=== PATIENT | male | born 1980 | race African-American/Black ===

== ENCOUNTER 2020-12-27 15:51 | Emergency (ER) | payer OTHER, SELFPAY ==
--- OUTSIDE RECORDS SUMMARY | 2020-12-27 15:53 | XMS REPORT | Continuity of Care Document ---
:1980 Author Organization [facility] t Address [address] [place] [address] Care Team Providers Name Role Phone Unavailable Unavailable Unavailable Problems This patient has no known problems. Allergies, Adverse Reactions, Alerts This patient has no known allergies or adverse reactions. Medications This patient has no known medications. Procedures This patient has no known procedures. Encounters Start End Encounter Admission Attending Care Care Encounter Source Date/Time Date/Time Type Type Clinicians Facility Department ID 2019-11-24 2019-11-24 Outpatient [facility] [id number] [facility] 00:00:00 00:00:00 [facility] Results This patient has no known results.
[2020-12-27 17:54] LABS: Absolute Lymphocytes (CBC) 2.5 K/uL (0.7-4.9); Hematocrit 40.5 % (39.6-49.0); Lymphocytes % 29.5 % (15.3-44.8); MPV 8.5 fL (7.6-11.3); RBC Red Blood Cell Count 4.27 M/uL (4.33-5.43)
[2020-12-27 18:10] LABS: ALT/SGPT 47 U/L (12-78); Albumin 3.4 g/dL (3.4-5.0); Alkaline Phosphatase 109 U/L (45-117); BUN Blood Urea Nitrogen 17 mg/dL (7-18); Bicarbonate 28 mmol/L (21-32); Bilirubin Direct < 0.1 mg/dL (0-0.2); Bilirubin Total 0.4 mg/dL (0.2-1.0); Glucose Level 104 mg/dL (74-106); Lipase 819 U/L (73-393); Protein, Total 7.6 g/dL (6.4-8.2); Sodium Level 143 mmol/L (136-145)
[2020-12-27 18:15] LABS: AST/SGOT 28 U/L (15-37); Potassium 3.7 mmol/L (3.5-5.1)
--- NOTE | 2020-12-27 19:41 | ER ---
Nurse's Notes [facility] Name: Grzegorz Ashraf Age: 40 yrs Sex: Male : 1980 Arrival Date: 12/27/2020 Time: 15:54 Bed Waiting Private MD: Diagnosis: Presentation: 12/27 16:44 Chief complaint: Patient states: generalized abd pain that began 2-3 days ago. Pt aa5 denies nausea/vomiting/diarrhea. Coronavirus screen: At this time, the client does not indicate any symptoms associated with coronavirus-19. Ebola Screen: No symptoms or risks identified at this time. Initial Sepsis Screen: Does the patient meet any 2 criteria? No. Patient's initial sepsis screen is negative. Does the patient have a suspected source of infection? No. Patient's initial sepsis screen is negative. Risk Assessment: Do you want to hurt yourself or someone else? Patient reports no desire to harm self or others. Onset of symptoms was December 2020. 16:44 Acuity: SAI 3 aa5 16:44 Method Of Arrival: Ambulatory aa5 Historical: - Allergies: 16:45 No Known Allergies; aa5 - PMHx: 16:45 Hypertensive disorder; aa5 - PSHx: 16:45 None; aa5 - Immunization history:: Client reports having NOT received the Covid vaccine. - Social history:: Smoking status: Patient reports the use of cigarette tobacco products, smokes one-half pack cigarettes per day. Vital Signs: 16:44 BP 159 / 109; Pulse 108; Resp 20 S; Temp 98.3(O); Pulse Ox 96% on R/A; Weight 120.2 kg aa5 (R); Height 5 ft. 8 in. (172.72 cm) (R); 16:44 Body Mass Index 40.29 (120.20 kg, 172.72 cm) aa5 ED Course: 15:54 Patient arrived in ED. as 16:44 Arm band placed on. aa5 16:45 Triage completed. aa5 16:47 [facility]-C [facility] kb 16:47 Manish Duarte MD is Attending Physician. kb 16:52 Initial lab(s) drawn, by me, sent to lab. Inserted saline lock: 20 gauge in left aa5 antecubital area, using aseptic technique. Blood collected. 18:07 Loly Ortiz, RN is Primary Nurse. ld1 Administered Medications: No medications were administered Outcome: 19:41 Patient left the ED. ld1 Signatures: Angi Bass FNP-C FNP-Delicia Evans Audri, RN RN aa5 Loly Ortiz, RN RN ld1
[2020-12-27 19:45] VITALS: BP 159/109; TEMP 98.3; O2SAT 96
== END 2020-12-27 19:41 | disposition left against medical advice (07) ==
LOC: ER 15:51
DX: Z53.21 Procedure and treatment not carried out due to patient leaving prior to being seen by health care provider (principal)
CPT/HCPCS: 36415; 80048; 80076; 83690; 85025; 99283

== ENCOUNTER 2021-12-12 13:44 | Emergency (ER) | payer OTHER, SELFPAY ==
--- OUTSIDE RECORDS SUMMARY | 2021-12-12 13:46 | XMS REPORT | Continuity of Care Document ---
:1980 Author Organization [facility] t Address [address] [place] [address] Care Team Providers Name Role Phone Neda Mazariegos Attending Clinician Unavailable Problems Condition Condition Condition Status Onset Resolution Last Treating Co mments Source Name Details Category Date Date Treatment Clinician Date Morbid Morbid Problem Active Common obesity (severe) Spirit obesity - CHI due to [facility] Benign Benign Problem Active Common essential essential Spir it hypertensi hypertensi - CHI on on [facility] Chronic Chronic Problem Active Common low back low back Spirit pain pain - CHI [facility] Family Family Problem Active Common history of history of Sp duncan diabetes diabetes - CHI mellitus mellitus [facility] Tobacco Nicotine Problem Active Common user dependence Spirit , - CHI uncomplica [facility] unspecifie Medica l d nicotine Center product type Body mass Adult BMI Problem Active Com mon index 40+ 40.0-44.9 Spir it - severely kg/sq m - CHI obese [facility] Allergies, Adverse Reactions, Alerts This patient has no known allergies or adverse reactions. Social History Social Habit Start Date Stop Date Quantity Comments Source History of Tobacco Current Smoker Co mmon Spirit - CHI Use [facility] Sex Assigned At Com mon Spirit - CHI [facility] Smoking Status Start Date Stop Date Source Current Smoker 2019-11-24 00:00:00 Common Spiri t - CHI [facility] Medications Ordered Filled Start Stop Current Ordering Indication Dosage Frequency Signature Comments Components Source Medication Medication Date Date Medication? Clinician (SIG) Name Name Losartan Losartan 2019-02 No 1{table QD Losartan Potassium Potassium 0-19 t} Potassium 25 MG 25 MG 00:00: 25 MG 00 Vital Signs Vital Name Observation Time Observation Value Comments Source height 2019-11-24 13:20:00 68 [in_i] [facility] weight 2019-11-24 13:20:00 281.0 [lb_av] [facility] temperature 2019-11-24 13:20:00 97.5 [degF] [facility] bmi 2019-11-24 13:20:00 42.72 kg/m2 [facility] oximetry 2019-11-24 13:20:00 92 % [facility] respiratory rate 2019-11-24 13:20:00 17 /min Comm on [facility] blood pressure 2019-11-24 13:20:00 143 mm[Hg] [facility] systolic [facility] blood pressure 2019-11-24 13:20:00 99 mm[Hg] [facility] diastolic [facility] Procedures This patient has no known procedures. Encounters Start End Encounter Admission Attending Care Care Encounter Source Date/Time Date/Time Type Type Clinicians Facility Department ID 2021-03-02 Outpatient Yair, STLMLC STLMLC [id number] Common 12:00:50 Neda [id number] [facility] 2021-03-02 Outpatient STLMLC STLMLC [id number] Common 11:56:30 [id number] [facility] 2019-11-24 2019-11-24 OFFICE STLMLC STLMLC [id number] Co mmon 00:00:00 00:00:00 VISIT NEW [facility] it PT LEVEL 3 [facility] Results This patient has no known results.
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
[2021-12-12] MEDS ORDERED: CYCLOBENZAPRINE 10 MG TAB ONE (15:39)
[2021-12-12] MEDS ORDERED: HYDROCODONE/APAP 5/325 MG TAB ONE (15:39)
[2021-12-12 16:51] VITALS: BP 142/81; O2SAT 96
== END 2021-12-12 15:50 | disposition home or self-care (01) ==
LOC: ER 13:44
DX: S16.1XXA Strain of muscle, fascia and tendon at neck level, initial encounter (principal); V59.59XA Passenger in pick-up truck or van injured in collision with other motor vehicles in traffic accident, initial encounter; I10 Essential (primary) hypertension; F17.210 Nicotine dependence, cigarettes, uncomplicated
CPT/HCPCS: 72040; 72100; 99284

== ENCOUNTER 2022-03-14 01:46 | Emergency (ER) | payer SELFPAY ==
--- OUTSIDE RECORDS SUMMARY | 2022-03-14 01:49 | XMS REPORT | Continuity of Care Document ---
:1980 Author Organization [facility] t Address [address] [place] [address] Care Team Providers Name Role Phone Neda Mazariegos Attending Clinician Unavailable Problems Condition Condition Condition Status Onset Resolution Last Treating Co mments Source Name Details Category Date Date Treatment Clinician Date Morbid Morbid Problem Active Common obesity (severe) Spirit obesity - CHI due to [facility] Benign Benign Problem Active Common essential essential Spir it hypertensi hypertensi - CHI on on [facility] Chronic Chronic Problem Active Common low back low back Spirit pain pain - CHI [facility] Family Family Problem Active Common history of history of Sp duncan diabetes diabetes - CHI mellitus mellitus [facility] Tobacco Nicotine Problem Active Common user dependence Spirit , - CHI uncomplica [facility] unspecifie Medica l d nicotine Center product type Body mass Adult BMI Problem Active Com mon index 40+ 40.0-44.9 Spir it - severely kg/sq m - CHI obese [facility] Allergies, Adverse Reactions, Alerts This patient has no known allergies or adverse reactions. Social History Social Habit Start Date Stop Date Quantity Comments Source History of Tobacco Current Smoker Co mmon Spirit - CHI Use [facility] Sex Assigned At Com mon Spirit - CHI [facility] Smoking Status Start Date Stop Date Source Current Smoker 2019-11-24 00:00:00 Common Spiri t - CHI [facility] Medications Ordered Filled Start Stop Current Ordering Indication Dosage Frequency Signature Comments Components Source Medication Medication Date Date Medication? Clinician (SIG) Name Name Losartan Losartan 2020-1 No 1{table QD Losartan Potassium Potassium 0-19 t} Potassium 25 MG 25 MG 00:00: 25 MG 00 Vital Signs Vital Name Observation Time Observation Value Comments Source height 2019-11-24 13:20:00 68 [in_i] [facility] weight 2019-11-24 13:20:00 281.0 [lb_av] [facility] temperature 2019-11-24 13:20:00 97.5 [degF] [facility] bmi 2019-11-24 13:20:00 42.72 kg/m2 [facility] oximetry 2019-11-24 13:20:00 92 % [facility] respiratory rate 2019-11-24 13:20:00 17 /min Comm on [facility] blood pressure 2019-11-24 13:20:00 143 mm[Hg] [facility] systolic [facility] blood pressure 2019-11-24 13:20:00 99 mm[Hg] [facility] diastolic [facility] Procedures This patient has no known procedures. Encounters Start End Encounter Admission Attending Care Care Encounter Source Date/Time Date/Time Type Type Clinicians Facility Department ID 2021-03-02 Outpatient Yair, STLMLC STLC [id number] Common 12:00:50 Neda [id number] [facility] 2021-03-02 Outpatient STLMLC STLMLC [id number] Common 11:56:30 [id number] [facility] 2019-11-24 2019-11-24 OFFICE STLMLC STLMLC [id number] Co mmon 00:00:00 00:00:00 VISIT NEW Spir it PT LEVEL 3 [facility] Results This patient has no known results.
[2022-03-14] MEDS ORDERED: DOXYCYCLINE 100 MG CAP PO ONE (02:19)
[2022-03-14] MEDS ORDERED: SMZ./TMP. 800/160 MG TABLET ONE (02:19)
--- NOTE | 2022-03-14 02:19 | ER ---
Nurse's Notes [facility] Name: Grzegorz Ashraf Jr Age: 41 yrs Sex: Male : 1980 Arrival Date: 03/14/2022 Time: 01:50 Bed 17 Private MD: Diagnosis: Cutaneous abscess of left axilla;Obesity, unspecified;Essential (primary) hypertension Presentation: 03/14 02:09 Chief complaint: Patient states: he has been having a "funny feeling in my heart' for bb several days with tingling in his left arm also has a small lump under his left arm. Coronavirus screen: At this time, the client does not indicate any symptoms associated with coronavirus-19. Ebola Screen: No symptoms or risks identified at this time. Initial Sepsis Screen: Does the patient meet any 2 criteria? No. Patient's initial sepsis screen is negative. Does the patient have a suspected source of infection? No. Patient's initial sepsis screen is negative. Risk Assessment: Do you want to hurt yourself or someone else? Patient reports no desire to harm self or others. Onset of symptoms was March 11, 2022. 02:09 Method Of Arrival: Ambulatory bb 02:09 Acuity: SAI 3 bb Historical: - Allergies: 02:13 No Known Allergies; bb - Home Meds: 02:13 None [Active]; bb - PMHx: 02:13 Hypertensive disorder; bb - PSHx: 02:13 None; bb - Immunization history:: Client reports having NOT received the Covid vaccine. - Social history:: Smoking status: Patient reports the use of cigarette tobacco products, Patient uses street drugs, marijuana, Patient/guardian denies using alcohol. - Family history:: not pertinent. Screenin:47 [facility] ED Fall Risk Assessment (Adult) History of falling in the last 3 months, pf1 including since admission No falls in past 3 months (0 pts). [facility] ED Fall Risk Assessment (Adult) History of falling in the last 3 months, including since admission No falls in past 3 months (0 pts) Confusion or Disorientation No (0 pts) Intoxicated or Sedated No (0 pts) Impaired Gait No (0 pts) Mobility Assist Device Used No (0 pt) Altered Elimination No (0 pt) Score/Fall Risk Level 0 - 2 = Low Risk Oriented to surroundings, Maintained a safe environment, Educated pt \\T\\ family on fall prevention, incl call for assistance when getting out of bed, Assessed \\T\\ reinforced patient's understanding of fall precautions, Provided non-skid footwear, Hourly rounding (assess needs \\T\\ fall precautionary measures) done, Used ambulatory aids as needed (educated on \\T\\ assisted with), Used gait belt as appropriate. Abuse screen: Denies threats or abuse. Nutritional screening: No deficits noted. Tuberculosis screening: No symptoms or risk factors identified. Assessment: 02:10 General: Appears in no apparent distress. comfortable, well groomed, well developed, pf1 Behavior is calm, cooperative, appropriate for age, quiet. 02:10 Pain: Complains of pain in left axillary pain and left chest "feels funny." Pain pf1 radiates to tingling sensation down left arm Pain began patient stated bump to left axillary started tonight at 2200 and a few days for chest discomfort and tingling sensation down left arm. Neuro: No deficits noted. Level of Consciousness is awake, alert, obeys commands, Oriented to person, place, time, situation. Cardiovascular: Reports chest pain, Capillary refill < 3 seconds Patient's skin is warm and dry. Respiratory: No deficits noted. Airway is patent Trachea midline Respiratory effort is even, unlabored, Respiratory pattern is regular, symmetrical, Breath sounds are clear bilaterally. GI: No deficits noted. Abdomen is round non-distended, Bowel sounds present X 4 quads. Abd is soft and non tender X 4 quads. : No deficits noted. No signs and/or symptoms were reported regarding the genitourinary system. EENT: No deficits noted. No signs and/or symptoms were reported regarding the EENT system. Derm: Abscess located on left axillary. Musculoskeletal: No deficits noted. No signs and/or symptoms reported regarding the musculoskeletal system. Vital Signs: 02:09 BP 167 / 118; Pulse 110; Resp 16 S; Temp 98.7(O); Pulse Ox 100% on R/A; Weight 111.13 bb kg (R); Height 5 ft. 8 in. (172.72 cm) (R); Pain 3/10; 02:47 BP 157 / 107; Pulse 105; Resp 18; Temp 98.5; Pulse Ox 97% ; Pain 0/10; pf1 02:09 Body Mass Index 37.25 (111.13 kg, 172.72 cm) ED Course: 01:50 Patient arrived in ED. ja2 02:07 Ena bey, RN is Primary Nurse. pf1 02:08 King Lin MD is Attending Physician. christy 02:12 Triage completed. bb 02:13 Arm band placed on Patient placed in an exam room, on a stretcher. bb 02:15 Patient has correct armband on for positive identification. Placed in gown. Bed in low pf1 position. Call light in reach. Client placed on continuous cardiac and pulse oximetry monitoring. NIBP monitoring applied. 02:18 Ezio Charlton MD is Referral Physician. christy 02:48 No provider procedures requiring assistance completed. Patient did not have IV access pf1 during this emergency room visit. Patient maintains SpO2 saturation greater than 95% on room air. Administered Medications: 02:15 Drug: Doxycycline 100 mg Route: PO; pf1 02:42 Follow up: Response: No adverse reaction pf1 02:15 Drug: Bactrim (trimethoprim-sulfamethoxazole) (160 mg-800 mg (DS) 1 tablet Route: PO; pf1 02:42 Follow up: Response: No adverse reaction pf1 02:30 Drug: Norvasc (amlodipine) 10 mg Route: PO; pf1 02:42 Follow up: Response: No adverse reaction; Marked relief of symptoms pf1 02:30 Drug: Motrin (ibuprofen) 800 mg Route: PO; pf1 02:41 Follow up: Response: No adverse reaction; Marked relief of symptoms pf1 02:42 Follow up: Response: Pain is decreased; RASS: Alert and Calm (0) pf1 Medication: 02:49 VIS not applicable for this client. pf1 Outcome: 02:19 Discharge ordered by . christy 02:48 Discharged to home ambulatory. pf1 02:48 Condition: improved 02:48 Discharge instructions given to patient, Instructed on discharge instructions, follow up and referral plans. medication usage, Demonstrated understanding of instructions, follow-up care, medications, Prescriptions given X 02:49 Prescriptions given X 4. pf1 02:50 Patient left the ED. pf1 Signatures: King Lin MD MD cha Ballard, Brenda, RN RN Roxanna Wong [facility] Ena bey RN RN pf1
--- NOTE | 2022-03-14 02:19 | EDPHYS ---
Physician Documentation [facility] Name: Grzegorz Ashraf Jr Age: 41 yrs Sex: Male : 1980 Arrival Date: 03/14/2022 Time: 01:50 Bed 17 Private MD: ED Physician King Lin HPI: 03/14 02:12 This 41 yrs old Black Male presents to ER via Unassigned with complaints of Chest Pain, christy Lump in Under Arm. Historical: - Allergies: 02:13 No Known Allergies; bb - Home Meds: 02:13 None [Active]; bb - PMHx: 02:13 Hypertensive disorder; bb - PSHx: 02:13 None; bb - Immunization history:: Client reports having NOT received the Covid vaccine. - Social history:: Smoking status: Patient reports the use of cigarette tobacco products, Patient uses street drugs, marijuana, Patient/guardian denies using alcohol. - Family history:: not pertinent. ROS: 02:13 Constitutional: Negative for fever, chills, and weight loss, Eyes: Negative for injury, christy pain, redness, and discharge, ENT: Negative for injury, pain, and discharge, Neck: Negative for injury, pain, and swelling, Cardiovascular: Negative for chest pain, palpitations, and edema, Respiratory: Negative for shortness of breath, cough, wheezing, and pleuritic chest pain, Abdomen/GI: Negative for abdominal pain, nausea, vomiting, diarrhea, and constipation, Back: Negative for injury and pain, : Negative for injury, bleeding, discharge, and swelling, Skin: Negative for injury, rash, and discoloration, Neuro: Negative for headache, weakness, numbness, tingling, and seizure, Psych: Negative for depression, anxiety, suicide ideation, homicidal ideation, and hallucinations, Allergy/Immunology: Negative for hives, rash, and allergies, Endocrine: Negative for neck swelling, polydipsia, polyuria, polyphagia, and marked weight changes, Hematologic/Lymphatic: Negative for swollen nodes, abnormal bleeding, and unusual bruising. 02:13 MS/extremity: Positive for decreased range of motion, swelling, tenderness, warmth. Exam: 02:13 Constitutional: This is a well developed, well nourished patient who is awake, alert, christy and in no acute distress. Head/Face: Normocephalic, atraumatic. Eyes: Pupils equal round and reactive to light, extra-ocular motions intact. Lids and lashes normal. Conjunctiva and sclera are non-icteric and not injected. Cornea within normal limits. Periorbital areas with no swelling, redness, or edema. ENT: Nares patent. No nasal discharge, no septal abnormalities noted. Tympanic membranes are normal and external auditory canals are clear. Oropharynx with no redness, swelling, or masses, exudates, or evidence of obstruction, uvula midline. Mucous membranes moist. Neck: Trachea midline, no thyromegaly or masses palpated, and no cervical lymphadenopathy. Supple, full range of motion without nuchal rigidity, or vertebral point tenderness. No Meningismus. Chest/axilla: Normal chest wall appearance and motion. Nontender with no deformity. No lesions are appreciated. Cardiovascular: Regular rate and rhythm with a normal S1 and S2. No gallops, murmurs, or rubs. Normal PMI, no JVD. No pulse deficits. Respiratory: Lungs have equal breath sounds bilaterally, clear to auscultation and percussion. No rales, rhonchi or wheezes noted. No increased work of breathing, no retractions or nasal flaring. Abdomen/GI: Soft, non-tender, with normal bowel sounds. No distension or tympany. No guarding or rebound. No evidence of tenderness throughout. Back: No spinal tenderness. No costovertebral tenderness. Full range of motion. Male : Normal genitalia with no discharge or lesions. Skin: Warm, dry with normal turgor. Normal color with no rashes, no lesions, and no evidence of cellulitis. Neuro: Awake and alert, GCS 15, oriented to person, place, time, and situation. Cranial nerves II-XII grossly intact. Motor strength 5/5 in all extremities. Sensory grossly intact. Cerebellar exam normal. Normal gait. Psych: Awake, alert, with orientation to person, place and time. Behavior, mood, and affect are within normal limits. 02:13 Musculoskeletal/extremity: Extremities: all appear grossly normal, with no appreciated pain with palpation, ROM: intact in all extremities, Circulation is intact in all extremities. Sensation intact. Compartment Syndrome exam of affected extremity: is normal. DVT Exam: No signs of deep vein thrombosis. no pain, no swelling, no tenderness, negative Homans' sign noted on exam, no appreciated bluish discoloration, no erythema, no increased warmth. Vital Signs: 02:09 BP 167 / 118; Pulse 110; Resp 16 S; Temp 98.7(O); Pulse Ox 100% on R/A; Weight 111.13 bb kg (R); Height 5 ft. 8 in. (172.72 cm) (R); Pain 3/10; 02:47 BP 157 / 107; Pulse 105; Resp 18; Temp 98.5; Pulse Ox 97% ; Pain 0/10; pf1 02:09 Body Mass Index 37.25 (111.13 kg, 172.72 cm) bb MDM: 02:08 Patient medically screened. christy 02:13 Differential diagnosis: chest wall pain. HEART Score: History: Slightly Suspicious (0), christy Age: < or = 45 years (0), Risk Factors: 1 or 2 risk factors (1), [Hypertension]. Data reviewed: vital signs, nurses notes. Consideration of Admission/Observation Escalation of care including admission/observation considered. 02 02:46 Order name: Glucose, Ancillary Testing EDMS 02 02:22 Order name: Blood Glucose Level; Complete Time: 02:34 christy Administered Medications: 02:15 Drug: Doxycycline 100 mg Route: PO; pf1 02:42 Follow up: Response: No adverse reaction pf1 02:15 Drug: Bactrim (trimethoprim-sulfamethoxazole) (160 mg-800 mg (DS) 1 tablet Route: PO; pf1 02:42 Follow up: Response: No adverse reaction pf1 02:30 Drug: Norvasc (amlodipine) 10 mg Route: PO; pf1 02:42 Follow up: Response: No adverse reaction; Marked relief of symptoms pf1 02:30 Drug: Motrin (ibuprofen) 800 mg Route: PO; pf1 02:41 Follow up: Response: No adverse reaction; Marked relief of symptoms pf1 02:42 Follow up: Response: Pain is decreased; RASS: Alert and Calm (0) pf1 Disposition Summary: 03/14/22 02:19 Discharge Ordered Location: Home christy Problem: new christy Symptoms: have improved christy Condition: Stable christy Diagnosis - Cutaneous abscess of left axilla christy - Obesity, unspecified christy - Essential (primary) hypertension christy Followup: christy - With: Private Physician - When: 2 - 3 days - Reason: Recheck today's complaints, Continuance of care, Re-evaluation by your physician Followup: [facility] - With: Ezio Charlton MD - When: 1 - 2 days - Reason: Recheck today's complaints, Re-evaluation by your physician Discharge Instructions: - Discharge Summary Sheet christy - Skin Abscess christy - Hypertension, Adult christy - Hypertension, Adult, [id number] [facility] - How to Take Your Blood Pressure, [id number] [facility] - Managing Your Hypertension [facility] Forms: - Medication Reconciliation Form [facility] - Thank You Letter [facility] - Antibiotic Education [facility] - Prescription Opioid Use [facility] Prescriptions: - Ibuprofen 600 mg Oral Tablet - take 1 tablet by ORAL route every 6 hours As needed take with food; 20 tablet; [facility] Refills: 0, Product Selection Permitted - Norvasc 5 mg Oral Tablet - take 1 tablet by ORAL route once daily; 20 tablet; Refills: 0, Product [facility] Selection Permitted - Doxycycline Hyclate 100 mg Oral Tablet - take 1 tablet by ORAL route every 12 hours; 20 tablet; Refills: 0, Product [facility] Selection Permitted - Bactrim DS 800-160 mg Oral Tablet - take 1 tablet by ORAL route every 12 hours for 10 days; 20 tablet; Refills: 0, [facility] Product Selection Permitted Signatures: King Lin MD MD cha Ballard, Brenda, RN RN Ena rodriguez RN RN pf1
[2022-03-14] MEDS ORDERED: AMLODIPINE 10 MG TAB ONE (02:31)
[2022-03-14] MEDS ORDERED: IBUPROFEN 400 MG TAB ONE (02:31)
[2022-03-14 03:25] VITALS: BP 157/107; TEMP 98.5; O2SAT 97
== END 2022-03-14 02:50 | disposition home or self-care (01) ==
LOC: ER 01:46
DX: L02.412 Cutaneous abscess of left axilla (principal); I10 Essential (primary) hypertension; E66.9 Obesity, unspecified; Z68.37 Body mass index [BMI] 37.0-37.9, adult
CPT/HCPCS: 82947

== ENCOUNTER 2022-03-16 19:14 | Emergency (ER) | payer SELFPAY ==
--- OUTSIDE RECORDS SUMMARY | 2022-03-16 19:17 | XMS REPORT | Continuity of Care Document ---
:1980 Author Organization [facility] t Address [address] [place] [address] Care Team Providers Name Role Phone Neda Mazariegos Attending Clinician Unavailable Problems Condition Condition Condition Status Onset Resolution Last Treating Co mments Source Name Details Category Date Date Treatment Clinician Date Morbid Morbid Problem Active Common obesity (severe) Spirit obesity - [facility] due to [facility] Benign Benign Problem Active Common essential essential Spir it hypertensi hypertensi - [facility] on on [facility] Chronic Chronic Problem Active Common low back low back Spirit pain pain - [facility] Family Family Problem Active Common history of history of Sp duncan diabetes diabetes - [facility] mellitus mellitus [facility] Tobacco Nicotine Problem Active Common user dependence Spirit , - [facility] uncomplica [facility] unspecifie [facility] Center product type Body mass Adult BMI Problem Active Com mon index 40+ 40.0-44.9 Spir it - severely kg/sq m - [facility] obese [facility] Allergies, Adverse Reactions, Alerts This patient has no known allergies or adverse reactions. Social History Social Habit Start Date Stop Date Quantity Comments Source History of Tobacco Current Smoker Co mmon Spirit - [facility] Use [facility] Sex Assigned At Com mon Spirit - [facility] Smoking Status Start Date Stop Date Source Current Smoker 2019-11-24 00:00:00 Common Spiri t - [facility] Medications Ordered Filled Start Stop Current Ordering Indication Dosage Frequency Signature Comments Components Source Medication Medication Date Date Medication? Clinician (SIG) Name Name Losartan Losartan 2020-1 No 1{table QD Losartan Potassium Potassium 0-19 t} Potassium 25 MG 25 MG 00:00: 25 MG 00 Vital Signs Vital Name Observation Time Observation Value Comments Source height 2019-11-24 13:20:00 68 [in_i] [facility] weight 2019-11-24 13:20:00 281.0 [lb_av] [facility] temperature 2019-11-24 13:20:00 97.5 [degF] [facility] bmi 2019-11-24 13:20:00 42.72 kg/m2 [facility] oximetry 2019-11-24 13:20:00 92 % [facility] respiratory rate 2019-11-24 13:20:00 17 /min Comm on [facility] blood pressure 2019-11-24 13:20:00 143 mm[Hg] [facility] systolic [facility] blood pressure 2019-11-24 13:20:00 99 mm[Hg] [facility] diastolic [facility] Procedures This patient has no known procedures. Encounters Start End Encounter Admission Attending Care Care Encounter Source Date/Time Date/Time Type Type Clinicians Facility Department ID 2021-03-02 Outpatient Yair, STLMLC STLC [id number] Common 12:00:50 Neda [id number] [facility] 2021-03-02 Outpatient STLMLC STLMLC [id number] Common 11:56:30 [id number] [facility] 2019-11-24 2019-11-24 OFFICE STLMLC STLMLC [id number] Co mmon 00:00:00 00:00:00 VISIT NEW Spir it PT LEVEL 3 [facility] Results This patient has no known results.
--- NOTE | 2022-03-16 20:00 | RAD REPORT ---
EXAM DESCRIPTION: RAD - Chest Single View - 03/16/2022 7:53 pm CLINICAL HISTORY: CHEST PAIN Chest pain. COMPARISON: Chest Single View dated 11/29/2015 FINDINGS: Portable technique limits examination quality. The lungs are grossly clear. The heart is normal in size. No displaced fractures. IMPRESSION: No acute intrathoracic process suspected.
[2022-03-16 20:25] LABS: Absolute Lymphocytes (CBC) 2.8 K/uL (0.7-4.9); Hematocrit 41.9 % (39.6-49.0); Lymphocytes % 34.6 % (15.3-44.8); MCV 94.3 fL (80-100); MPV 8.8 fL (7.6-11.3); RBC Red Blood Cell Count 4.45 M/uL (4.33-5.43)
[2022-03-16 20:40] LABS: Troponin High Sensitivity 5.6 pg/mL (<58.9)
[2022-03-16 20:43] LABS: Potassium 3.8 mmol/L (3.5-5.1)
--- NOTE | 2022-03-16 20:54 | ER ---
Nurse's Notes [facility] [place] [place] Name: Grzegorz Ashraf Jr Age: 41 yrs Sex: Male : 1980 Arrival Date: 03/16/2022 Time: 19:17 Bed 7 Private MD: Diagnosis: Chest pain, unspecified Presentation: 03/16 19:24 Chief complaint: Patient states: "I've been having chest pain for the past week every mb9 couple minutes. It comes and goes and I feel like I'm sweating a lot". 19:24 Method Of Arrival: Ambulatory mb9 19:24 Coronavirus screen: Vaccine status: Patient reports being unvaccinated. Ebola Screen: mb9 No symptoms or risks identified at this time. Initial Sepsis Screen: Does the patient meet any 2 criteria? No. Patient's initial sepsis screen is negative. Does the patient have a suspected source of infection? No. Patient's initial sepsis screen is negative. Risk Assessment: Do you want to hurt yourself or someone else? Patient reports no desire to harm self or others. Onset of symptoms was March 09, 2022. 19:24 Acuity: SAI 3 mb9 Historical: - Allergies: 19:39 No Known Allergies; mb9 - PMHx: 19:39 Hypertensive disorder; mb9 - PSHx: 19:39 None; mb9 - Immunization history:: Adult Immunizations not up to date. - Social history:: Smoking status: Patient/guardian denies using tobacco, but has a distant history of tobacco abuse. - Family history:: not pertinent. - Hospitalizations: : No recent hospitalization is reported. Screenin:45 [facility] ED Fall Risk Assessment (Adult) History of falling in the last 3 months, jb4 including since admission No falls in past 3 months (0 pts) Confusion or Disorientation No (0 pts) Score/Fall Risk Level 0 - 2 = Low Risk Oriented to surroundings, Maintained a safe environment. Abuse screen: Denies threats or abuse. Nutritional screening: No deficits noted. Tuberculosis screening: No symptoms or risk factors identified. Assessment: 19:45 General: Appears in no apparent distress. comfortable, Behavior is calm, cooperative, jb4 appropriate for age. Pain: Complains of pain in chest Pain radiates to left arm Pain currently is 3 out of 10 on a pain scale. Quality of pain is described as stabbing, Pain began 2-3 days ago. Is intermittent. Neuro: Level of Consciousness is awake, alert, obeys commands, Oriented to person, place, time, situation. Cardiovascular: Patient's skin is warm and dry. Respiratory: Airway is patent Respiratory effort is even, unlabored, Respiratory pattern is regular, symmetrical. GI: No signs and/or symptoms were reported involving the gastrointestinal system. : No signs and/or symptoms were reported regarding the genitourinary system. EENT: No signs and/or symptoms were reported regarding the EENT system. Derm: Skin is intact, Skin is dry, Skin is normal. Musculoskeletal: Circulation, motion, and sensation intact. Range of motion: intact in all extremities. 20:24 Reassessment: Patient appears in no apparent distress at this time. Patient and/or jb4 family updated on plan of care and expected duration. Pain level reassessed. Patient is alert, oriented x 3, equal unlabored respirations, skin warm/dry/pink. 21:06 Reassessment: Patient appears in no apparent distress at this time. Patient and/or jb4 family updated on plan of care and expected duration. Pain level reassessed. Patient is alert, oriented x 3, equal unlabored respirations, skin warm/dry/pink. Vital Signs: 19:24 BP 148 / 108; Pulse 110; Resp 20; Temp 99.0; Pulse Ox 97% on R/A; Weight 111.13 kg; mb9 Height 5 ft. 8 in. (172.72 cm); 20:26 BP 136 / 92; Pulse 100; Resp 15; Pulse Ox 97% ; jb4 19:24 Body Mass Index 37.25 (111.13 kg, 172.72 cm) mb9 ED Course: 19:17 Patient arrived in ED. am2 19:24 Arm band placed on. mb9 19:26 Kirk Hampton MD is Attending Physician. rn 19:39 Triage completed. mb9 19:39 Placed in gown. Bed in low position. Call light in reach. Side rails up X 1. Client mb9 placed on continuous cardiac and pulse oximetry monitoring. NIBP monitoring applied. monitoring engineer on. 19:39 EKG done, by ED staff, reviewed by Kirk Hampton MD. mb9 19:55 XRAY Chest (1 view) In Process Unspecified. EDMS 19:59 Inserted saline lock: 22 gauge in right antecubital area, using aseptic technique. mw1 Blood collected. 20:07 Faustino Fuller, RN is Primary Nurse. jb4 21:06 No provider procedures requiring assistance completed. IV discontinued, intact, jb4 bleeding controlled, No redness/swelling at site. Pressure dressing applied. Patient maintains SpO2 saturation greater than 95% on room air. Administered Medications: No medications were administered Medication: 21: VIS not applicable for this client. jb4 Outcome: :53 Discharge ordered by . rn 21: Discharged to home ambulatory. jb4 21:06 Condition: stable 21:06 Discharge instructions given to patient, Instructed on discharge instructions, follow up and referral plans. Demonstrated understanding of instructions, follow-up care. 21:07 Patient left the ED. jb4 Signatures: Dispatcher [employer] EDMS Kirk Hampton MD MD rn Bryson, James, RN RN jb4 Juliet Morrison am2 Can Arana mw1 Eleni Ambrocio RN RN mb9
--- NOTE | 2022-03-16 20:54 | EDPHYS ---
Physician Documentation [facility] Name: Grzegorz Ashraf Jr Age: 41 yrs Sex: Male : 1980 Arrival Date: 03/16/2022 Time: 19:17 Bed 7 Private MD: ED Physician Kirk Hampton HPI: 03/16 20:04 This 41 yrs old Black Male presents to ER via Ambulatory with complaints of Chest Pain. rn 20:04 The patient or guardian reports chest pain that is located primarily in the anterior rn aspect of left upper chest. The pain radiates to the left shoulder. Associated signs and symptoms: Pertinent negatives: abdominal pain, cough, diaphoresis, palpitations, shortness of breath, syncope, vomiting. The chest pain is described as aching, sharp. Duration: The patient or guardian reports multiple episodes, that are intermittent, the episodes last approximately 1 minute(s). Modifying factors: The symptoms are alleviated by nothing. the symptoms are aggravated by deep breath. Severity of pain: At its worst the pain was mild in the emergency department the pain has improved. The patient has experienced a previous episode. The patient has been recently seen at the [facility] Emergency Department. Pt reports intermittent left sided chest pain over the last week, seen here for it earlier in week, no trauma, no hx of DVT/PE, + smoker, radiates to left shoulder/arm, lasts for about 1-2 minutes, improves after calming down and slow breathing exercises. NO famhx of early cardiac problems. . Historical: - Allergies: 19:39 No Known Allergies; mb9 - PMHx: 19:39 Hypertensive disorder; mb9 - PSHx: 19:39 None; mb9 - Immunization history:: Adult Immunizations not up to date. - Social history:: Smoking status: Patient/guardian denies using tobacco, but has a distant history of tobacco abuse. - Family history:: not pertinent. - Hospitalizations: : No recent hospitalization is reported. ROS: 20:04 Constitutional: Negative for fever, chills, and weight loss, Eyes: Negative for injury, rn pain, redness, and discharge, Neck: Negative for injury, pain, and swelling, Cardiovascular: Negative for palpitations, and edema, Respiratory: Negative for shortness of breath, cough, wheezing Abdomen/GI: Negative for abdominal pain, nausea, vomiting, diarrhea, and constipation, MS/Extremity: Negative for injury and deformity, Skin: Negative for injury, rash, and discoloration, Neuro: Negative for headache, weakness, numbness, tingling, and seizure. Exam: 19:42 ECG was reviewed by the Attending Physician. rn 20:04 Constitutional: This is a well developed, well nourished patient who is awake, alert, rn and in no acute distress. Seems anxious. Head/Face: Normocephalic, atraumatic. Cardiovascular: Tachycardic, regular. Respiratory: No increased work of breathing, no retractions or nasal flaring. Abdomen/GI: soft, non-tender Skin: Warm, dry MS/ Extremity: Pulses equal, no cyanosis. Neuro: Awake and alert, GCS 15 Vital Signs: 19:24 BP 148 / 108; Pulse 110; Resp 20; Temp 99.0; Pulse Ox 97% on R/A; Weight 111.13 kg; mb9 Height 5 ft. 8 in. (172.72 cm); 20:26 BP 136 / 92; Pulse 100; Resp 15; Pulse Ox 97% ; jb4 19:24 Body Mass Index 37.25 (111.13 kg, 172.72 cm) mb9 MDM: 19:26 Patient medically screened. rn 20:04 Differential diagnosis: acute myocardial infarction, acute pericarditis, anxiety, rn coronary artery disease chest wall pain, congestive heart failure costochondritis, esophagitis, pleurisy, pneumothorax, pulmonary embolus, stable angina. 20:52 HEART Score: History: Slightly Suspicious (0), ECG: Non specific repolarization rn disturbance / LBTB / PM (1), Age: < or = 45 years (0), Risk Factors: 1 or 2 risk factors (1), Troponin: < or = 1 x Normal Limit (0), Total Score = 2. Data reviewed: vital signs, nurses notes, lab test result(s), EKG, radiologic studies, plain films, and as a result, I will discharge patient. Independent interpretation of the following test(s) in the Emergency Department EKG: See my EKG interpretation above X-Ray: My interpretation is CXR neg for pneumothorax or pneumonia. Counseling: I had a detailed discussion with the patient and/or guardian regarding: the historical points, exam findings, and any diagnostic results supporting the discharge/admit diagnosis, lab results, radiology results, the need for outpatient follow up, to return to the emergency department if symptoms worsen or persist or if there are any questions or concerns that arise at home. Special discussion: Based on the patient's history, exam, and Dx evaluation, there is no indication for emergent intervention or inpatient Tx. It is understood by the patient/guardian that if the Sx's persist or worsen they need to return immediately for re-evaluation. I discussed with the patient/guardian in detail that at this point there is no indication for admission to the hospital. It is understood, however, that if the symptoms persist or worsen the patient needs to return immediately for re-evaluation. Based on the history and exam findings, there is no indication for further emergent testing or inpatient evaluation. I discussed with the patient/guardian the need to see the primary care provider for further evaluation of the symptoms. ED course: 2 ER visits in same week, with neg workups, neg trop, neg d-dimer, recommend smoking cessation and will discharge with return precautions. . 03/16 19:33 Order name: Basic Metabolic Panel; Complete Time: 20:03/16 19:33 Order name: CBC with Diff; Complete Time: 20: rn 03/16 19:33 Order name: D-Dimer; Complete Time: 20: rn 03/16 19:33 Order name: NT PRO-BNP; Complete Time: 20:50 rn 03/16 19:33 Order name: Troponin HS; Complete Time: 20:50 rn 03/16 19:33 Order name: XRAY Chest (1 view); Complete Time: 20: rn 03/16 19:33 Order name: EKG; Complete Time: 19: rn 03/16 19:33 Order name: Cardiac monitoring; Complete Time: 20: rn 03/16 19:33 Order name: EKG - Nurse/Tech; Complete Time: 20: rn 03/16 19:33 Order name: IV Saline Lock; Complete Time: :03/16 19:33 Order name: Labs collected and sent; Complete Time: 20:03/16 19:33 Order name: O2 Per Protocol; Complete Time: 20:03/16 19:33 Order name: O2 Sat Monitoring; Complete Time: 20: rn EC:42 Rate is 109 beats/min. Rhythm is regular. QRS is positive in lead aVF and negative in rn lead I. HI interval is normal. QRS interval is normal. QT interval is normal. No Q waves. T waves are Normal. No ST changes noted. Clinical impression: Sinus tachycardia. Interpreted by me. Reviewed by me. Administered Medications: No medications were administered Disposition Summary: 03/16/22 20:53 Discharge Ordered Location: Home rn Problem: an ongoing problem rn Symptoms: have improved rn Condition: Stable rn Diagnosis - Chest pain, unspecified rn Followup: rn - With: Private Physician - When: As needed - Reason: Recheck today's complaints, Re-evaluation by your physician Discharge Instructions: - Discharge Summary Sheet rn - Nonspecific Chest Pain, Adult rn - Hypertension, Adult rn - Steps to Quit Smoking rn Forms: - Medication Reconciliation Form rn - Thank You Letter rn - Antibiotic mergers and acquisitions attorney - Prescription Opioid Use rn Signatures: Dispatcher [employer] Kirk Medina MD MD rn Breneman, Mary Beth, RN RN mb9
[2022-03-16 21:38] VITALS: TEMP 98.8
[2022-03-16 21:39] VITALS: BP 111/57; O2SAT 98
== END 2022-03-16 21:07 | disposition home or self-care (01) ==
LOC: ER 19:14
DX: R07.89 Other chest pain (principal); I10 Essential (primary) hypertension
CPT/HCPCS: 36415; 71045; 80048; 83880; 84484; 85025; 85379; 93005; 99285

== ENCOUNTER 2022-06-22 14:04 | Emergency (ER) | payer OTHER ==
--- OUTSIDE RECORDS SUMMARY | 2022-06-22 14:09 | XMS REPORT | Continuity of Care Document ---
:1980 Author Organization [facility] t Address [address] [place] [address] Care Team Providers Name Role Phone Neda Mazariegos Attending Clinician Unavailable Problems Condition Condition Condition Status Onset Resolution Last Treating Co mments Source Name Details Category Date Date Treatment Clinician Date Morbid Morbid Problem Active Common obesity (severe) Spirit obesity - [facility] due to [facility] Benign Benign Problem Active Common essential essential Spir it hypertensi hypertensi - [facility] on on [facility] Chronic Chronic Problem Active Common low back low back Spirit pain pain - [facility] Family Family Problem Active Common history of history of Sp duncan diabetes diabetes - [facility] mellitus mellitus [facility] Tobacco Nicotine Problem Active Common user dependence Spirit , - [facility] uncomplica [facility] unspecifie Med[facility] nicotine Center product type Body mass Adult BMI Problem Active Com mon index 40+ 40.0-44.9 Spir it - severely kg/sq m - [facility] obese [facility] Allergies, Adverse Reactions, Alerts This patient has no known allergies or adverse reactions. Social History Social Habit Start Date Stop Date Quantity Comments Source History of Tobacco Current Smoker Co mmon Spirit - [facility] Use [facility] Sex Assigned At Com mon Spirit - [facility] Smoking Status Start Date Stop Date Source Current Smoker 2019-11-24 00:00:00 Common Spiri t - [facility] Medications Ordered Filled Start Stop Current Ordering Indication Dosage Frequency Signature Comments Components Source Medication Medication Date Date Medication? Clinician (SIG) Name Name Losartan Losartan 2019-02 No 1{table QD Losartan Potassium Potassium 0-19 t} Potassium 25 MG 25 MG 00:00: 25 MG 00 Vital Signs Vital Name Observation Time Observation Value Comments Source height 2019-11-24 13:20:00 68 [in_i] [facility] weight 2019-11-24 13:20:00 281.0 [lb_av] [facility] temperature 2019-11-24 13:20:00 97.5 [degF] [facility] bmi 2019-11-24 13:20:00 42.72 kg/m2 [facility] oximetry 2019-11-24 13:20:00 92 % [facility] respiratory rate 2019-11-24 13:20:00 17 /min Comm on [facility] blood pressure 2019-11-24 13:20:00 143 mm[Hg] [facility] - systolic [facility] blood pressure 2019-11-24 13:20:00 99 mm[Hg] [facility] diastolic [facility] Procedures This patient has no known procedures. Encounters Start End Encounter Admission Attending Care Care Encounter Source Date/Time Date/Time Type Type Clinicians Facility Department ID 2021-03-02 Outpatient Yair, STLMLC STLMLC [id number] Common 12:00:50 Neda [id number] [facility] 2021-03-02 Outpatient STLMLC STLMLC [id number] Common 11:56:30 [id number] [facility] 2022-05-26 2022-05-26 Outpatient SFA SFA [id number] Raymond 16:50:47 16:50:47 [id number] F Conrad 2022-04-04 2022-04-04 Outpatient SFA SFA [id number] Raymond 11:07:16 11:07:16 [id number] F Conrad 2022-03-20 2022-03-20 Outpatient SFA SFA [id number] Raymond 14:58:22 14:58:22 [id number] F Magalia 2019-11-24 2019-11-24 OFFICE STLMLC STLMLC [id number] Co mmon 00:00:00 00:00:00 VISIT ALEX [facility] it PT LEVEL 3 - [facility] Results This patient has no known results.
--- NOTE | 2022-06-22 15:11 | RAD REPORT ---
EXAM DESCRIPTION: RADChest Single View06/22/2022 2:56 pm CLINICAL HISTORY: CHEST PAIN COMPARISON: Chest Single View dated 05/04/2022; Chest Single View dated 03/16/2022; Chest Single View d ated 11/29/2015 TECHNIQUE: Portable AP view of the chest. FINDINGS: The lungs are clear. No pneumothorax or effusion. The cardiomediastinal contours are unrem arkable. IMPRESSION: No acute cardiopulmonary process.
[2022-06-22 15:22] LABS: Absolute Lymphocytes (CBC) 2.1 K/uL (0.7-4.9); Lymphocytes % 26.9 % (15.3-44.8); MCV 95.6 fL (80-100); MPV 8.7 fL (7.6-11.3); RBC Red Blood Cell Count 4.19 M/uL (4.33-5.43)
[2022-06-22 16:00] LABS: ALT/SGPT 39 U/L (16-61); Albumin 3.2 g/dL (3.4-5.0); Alkaline Phosphatase 97 U/L (45-117); BUN Blood Urea Nitrogen 17 mg/dL (7-18); Bicarbonate 26 mEq/L (21-32); Bilirubin Total 0.3 mg/dL (0.2-1.0); Glomerular Filtration Rate 106 ml/min (=/>90); Glucose Level 110 mg/dL (74-106); NT PRO-BNP 10 pg/mL (<125); Protein, Total 6.9 g/dL (6.4-8.2); Sodium Level 139 mEq/L (136-145); Troponin High Sensitivity 4.8 pg/mL (<58.9)
[2022-06-22 16:02] LABS: AST/SGOT 24 U/L (15-37); Bilirubin Direct < 0.1 mg/dL (0-0.2); Bilirubin Indirect, Calculated ND mg/dL (0.2-0.8); Magnesium 1.6 mg/dL (1.6-2.4); Potassium 3.9 mEq/L (3.5-5.1)
--- NOTE | 2022-06-22 18:10 | ER ---
Nurse's Notes [facility] Name: Grzegorz Ashraf Jr Age: 41 yrs Sex: Male : 1980 Arrival Date: 06/22/2022 Time: 14:04 Bed 20 Private MD: Diagnosis: Chest pain, unspecified Presentation: 06/22 14:24 Chief complaint: Patient states: CP that woke pt up this morning. Stated "chest vg1 pressure" that radiates to Left Arm, denies h/a or SOB. Coronavirus screen: Vaccine status: Patient reports being unvaccinated. Client denies travel out of the [place] in the last 14 days. Ebola Screen: Patient negative for fever greater than or equal to 101.5 degrees Fahrenheit, and additional compatible Ebola Virus Disease symptoms Patient denies exposure to infectious person. Patient denies travel to an Ebola-affected area in the 21 days before illness onset. Initial Sepsis Screen: Does the patient meet any 2 criteria? HR > 90 bpm. Does the patient have a suspected source of infection? No. Patient's initial sepsis screen is negative. Risk Assessment: Do you want to hurt yourself or someone else? Patient reports no desire to harm self or others. Onset of symptoms. 14:24 Method Of Arrival: Ambulatory vg1 14:24 Acuity: SAI 2 vg1 Triage Assessment: 14:28 General: Appears uncomfortable, Behavior is cooperative. Pain: Complains of pain in vg1 chest Pain radiates to left arm Pain currently is 5 out of 10 on a pain scale. Pain began this morning around 1100. Cardiovascular: Patient's skin is warm and dry. Historical: - Allergies: 14:28 No Known Allergies; vg1 - Home Meds: 14:28 losartan oral [Active]; vg1 18:19 amlodipine 5 mg tablet daily [Active]; eh3 - PMHx: 14:28 Hypertensive disorder; vg1 - PSHx: 14:28 None; vg1 - Immunization history:: Client reports having NOT received the Covid vaccine. - Social history:: Smoking status: Patient reports the use of cigarette tobacco products, cigars. Screenin:00 [facility] ED Fall Risk Assessment (Adult) Score/Fall Risk Level 0 - 2 = Low Risk. Abuse eh3 screen: Denies threats or abuse. Denies injuries from another. Nutritional screening: No deficits noted. Tuberculosis screening: No symptoms or risk factors identified. Assessment: 15:00 General: Appears in no apparent distress. uncomfortable, Behavior is cooperative, eh3 appropriate for age. Pain: Complains of pain in chest Pain radiates to left arm. Pain: Pain currently is 7 out of 10 on a pain scale. Pain began suddenly, 4 hours ago. Neuro: Level of Consciousness is awake, alert, obeys commands, Oriented to person, place, time, situation. Cardiovascular: Capillary refill < 3 seconds Patient's skin is warm and dry. Respiratory: Airway is patent Respiratory effort is even, unlabored, Respiratory pattern is regular, symmetrical. GI: Abdomen is round non-distended. : No signs and/or symptoms were reported regarding the genitourinary system. EENT: No signs and/or symptoms were reported regarding the EENT system. Derm: Skin is pink, warm \\T\\ dry. Musculoskeletal: Circulation, motion, and sensation intact. Range of motion: intact in all extremities. 16:00 Reassessment: Patient appears in no apparent distress at this time. Patient and/or eh3 family updated on plan of care and expected duration. Pain level reassessed. Patient is alert, oriented x 3, equal unlabored respirations, skin warm/dry/pink. 17:00 Reassessment: Patient appears in no apparent distress at this time. Patient and/or eh3 family updated on plan of care and expected duration. Pain level reassessed. Patient is alert, oriented x 3, equal unlabored respirations, skin warm/dry/pink. 17:50 Reassessment: Found pt's room empty, pt seen exiting ED a few minutes ago. eh3 Vital Signs: 14:24 BP 136 / 104; Pulse 102; Resp 18; Temp 98.4; Weight 117.93 kg; Height 5 ft. 8 in. ; vg1 Pain 5/10; 15:00 BP 136 / 99; Pulse 102; Resp 18; Pulse Ox 96% on R/A; eh3 15:30 BP 129 / 84; Pulse 88; Resp 14; Pulse Ox 96% on R/A; eh3 16:00 BP 132 / 95; Pulse 85; Resp 17; Pulse Ox 95% on R/A; eh3 16:30 BP 138 / 79; Pulse 90; Resp 20; Pulse Ox 96% on R/A; eh3 17:00 BP 132 / 97; Pulse 89; Resp 16; Pulse Ox 96% on R/A; eh3 14:24 Body Mass Index 39.53 (117.93 kg, 172.72 cm) vg1 14:24 Pain Scale: Adult vg1 ED Course: 14:08 Patient arrived in ED. mr 14:20 [facility] Bass [facility]C [facility] kb 14:20 King Lin MD is Attending Physician. kb 14:28 Triage completed. vg1 14:28 Arm band placed on. vg1 14:36 EKG done, by ED staff. vg1 14:38 Mirella Lagunas, RN is Primary Nurse. kc6 14:58 XRAY Chest (1 view) In Process Unspecified. EDMS 15:00 Patient has correct armband on for positive identification. Bed in low position. Call eh3 light in reach. Side rails up X2. Client placed on continuous cardiac and pulse oximetry monitoring. NIBP monitoring applied. 15:00 Patient maintains SpO2 saturation greater than 95% on room air. eh3 15:09 Missed attempt(s): 22 gauge in right hand. Bleeding controlled, band aid applied, ll1 catheter tip intact. 15:09 Initial lab(s) drawn, by me, sent to lab. Missed attempt(s): 22 gauge in left ll1 antecubital area. Bleeding controlled, band aid applied, catheter tip intact. 18:19 No provider procedures requiring assistance completed. Patient did not have IV access eh3 during this emergency room visit. Administered Medications: No medications were administered Medication: 18:19 VIS not applicable for this client. eh3 Outcome: 18:09 Discharge ordered by . kb 18:19 Discharged to home ambulatory. eh3 18:19 Condition: stable 18:19 Discharge instructions given to pt left before receiving discharge instructions 18:19 Patient left the ED. eh3 Signatures: Dispatcher [employer] EDMN Angi Bass FNP-C FNP-Tri Eleni CraneMarika, RN RN vg1 Raymond Renteria RN RN ll1 Danitza Turcios, URIEL RN 3 Mirella Lagunas, RN RN kc6 Corrections: (The following items were deleted from the chart) 14:30 14:24 Chief complaint: Patient states: CP that woke pt up this morning. Stated "chest vg1 pressure", denies h/a or SOB vg1 14:30 14:24 Acuity: SAI 3 vg1 vg1 16:44 16:00 BP 129 / 84; Pulse 88bpm; Resp 14bpm; Pulse Ox 96% RA; eh3 eh3
--- NOTE | 2022-06-22 18:10 | EDPHYS ---
Physician Documentation [facility] Name: Grzegorz Ashraf Jr Age: 41 yrs Sex: Male : 1980 Arrival Date: 06/22/2022 Time: 14:04 Bed 20 Private MD: ED Physician King Lin HPI: 06/22 17:41 This 41 yrs old Black Male presents to ER via Ambulatory with complaints of Chest Pain. kb 17:41 The patient or guardian reports chest pain that is located primarily in the anterior kb chest wall. The pain does not radiate. Associated signs and symptoms: Pertinent positives: high blood pressure. The chest pain is described as a pressure. Duration: The patient or guardian reports a single episode, that is still ongoing. Modifying factors: The symptoms are alleviated by nothing. the symptoms are aggravated by nothing. Severity of pain: At its worst the pain was mild in the emergency department the pain is unchanged. The patient has experienced similar episodes in the past. The patient has not recently seen a physician. Pt reports he woke up with chest pressure and high blood pressure today. States he has had similar symptoms a few times in the past. Takes losartan only for BP. Historical: - Allergies: 14:28 No Known Allergies; vg1 - Home Meds: 14:28 losartan oral [Active]; vg1 18:19 amlodipine 5 mg tablet daily [Active]; eh3 - PMHx: 14:28 Hypertensive disorder; vg1 - PSHx: 14:28 None; vg1 - Immunization history:: Client reports having NOT received the Covid vaccine. - Social history:: Smoking status: Patient reports the use of cigarette tobacco products, cigars. ROS: 17:41 Constitutional: Negative for fever, chills, and weight loss. kb 17:41 Cardiovascular: Positive for chest pain, Negative for edema, orthopnea, palpitations, paroxysmal nocturnal dyspnea. 17:41 All other systems are negative. Exam: 14:39 Constitutional: This is a well developed, well nourished patient who is awake, alert, kb and in no acute distress. Head/Face: Normocephalic, atraumatic. ENT: Moist Mucous membranes Cardiovascular: Regular rate and rhythm with a normal S1 and S2. No gallops, murmurs, or rubs. No pulse deficits. Respiratory: Respirations even and unlabored. No increased work of breathing. Talking in full sentences Abdomen/GI: Soft, non-tender. No distention Skin: Warm, dry with normal turgor. Normal color. MS/ Extremity: Pulses equal, no cyanosis. Neurovascular intact. Full, normal range of motion. Neuro: Awake and alert, GCS 15, oriented to person, place, time, and situation. Moves all extremities. Normal gait. 14:39 ECG was reviewed by the Attending Physician. Vital Signs: 14:24 BP 136 / 104; Pulse 102; Resp 18; Temp 98.4; Weight 117.93 kg; Height 5 ft. 8 in. ; vg1 Pain 5/10; 15:00 BP 136 / 99; Pulse 102; Resp 18; Pulse Ox 96% on R/A; eh3 15:30 BP 129 / 84; Pulse 88; Resp 14; Pulse Ox 96% on R/A; eh3 16:00 BP 132 / 95; Pulse 85; Resp 17; Pulse Ox 95% on R/A; eh3 16:30 BP 138 / 79; Pulse 90; Resp 20; Pulse Ox 96% on R/A; eh3 17:00 BP 132 / 97; Pulse 89; Resp 16; Pulse Ox 96% on R/A; eh3 14:24 Body Mass Index 39.53 (117.93 kg, 172.72 cm) vg1 14:24 Pain Scale: Adult vg1 MDM: 14:23 Patient medically screened. kb 17:41 Data reviewed: vital signs, nurses notes. kb 18:05 Differential diagnosis: abnormal EKG, acute myocardial infarction, coronary artery kb disease chest wall pain. Consideration of Admission/Observation Escalation of care including admission/observation considered. admission considered for chest pain, but HEART score 1. . Scoring Tools HEART Score: Total Score = 1. 18:09 ED course: Pt elected to leave prior to second troponin. kb 06/22 14:27 Order name: Basic Metabolic Panel; Complete Time: 16:10 kb 06/22 14:27 Order name: CBC with Diff; Complete Time: 15:57 kb 06/22 14:27 Order name: LFT's; Complete Time: 16:10 kb 06/22 14:27 Order name: Magnesium; Complete Time: 16:10 kb 06/22 14:27 Order name: NT PRO-BNP; Complete Time: 16:10 kb 06/22 14:27 Order name: Troponin HS; Complete Time: 16:10 kb 06/22 14:27 Order name: XRAY Chest (1 view); Complete Time: 15:57 kb 06/22 14:27 Order name: EKG; Complete Time: 14:28 kb 06/22 14:27 Order name: Cardiac monitoring; Complete Time: 14:52 kb 06/22 14:27 Order name: EKG - Nurse/Tech; Complete Time: 14:36 kb 06/22 14:27 Order name: Labs collected and sent; Complete Time: 15:08 kb 06/22 14:27 Order name: O2 Per Protocol; Complete Time: 14:36 kb 06/22 14:27 Order name: O2 Sat Monitoring; Complete Time: 14:36 kb EC:39 Rate is 103 beats/min. Rhythm is regular. QRS [place] is Normal. PA interval is normal at kb 136 msec. QRS interval is normal at 86 msec. QT interval is normal at 455 msec. Administered Medications: No medications were administered Disposition Summary: 06/22/22 18:09 Discharge Ordered Location: Home kb Condition: Stable kb Diagnosis - Chest pain, unspecified kb Followup: kb - With: Emergency Department - When: As needed - Reason: Worsening of condition Followup: kb - With: Private Physician - When: 2 - 3 days - Reason: Recheck today's complaints, Continuance of care, Re-evaluation by your physician Discharge Instructions: - Discharge Summary Sheet kb - Nonspecific Chest Pain, Adult, [id number] kb Forms: - Medication Reconciliation Form kb - Thank You Letter kb - Antibiotic Education kb - Prescription Opioid Use kb Signatures: Dispatcher [employer] Angi Herring FNP-C FNP-Marika Marie, RN RN vg1 Danitza Turcios, RN RN eh3
[2022-06-22 18:54] VITALS: TEMP 98.4
[2022-06-22 18:59] VITALS: O2SAT 96
[2022-06-22 19:00] VITALS: BP 132/97
--- NOTE | 2022-06-23 13:27 | EKG ---
Test Date: 2022-06-22 Test Time: 14:34:55 Asphalt Paving Supervisor: LIZETT MEASUREMENT RESULTS: Intervals: Rate: 103 DC: 136 QRSD: 86 QT: 348 QTc: 455 [place]: P: 47 DC: 136 QRS: 77 T: 25 INTERPRETIVE STATEMENTS: Sinus tachycardia Otherwise normal ECG Compared to ECG 05/24/2022 01:18:04 Sinus rhythm no longer present Electronically Signed On 06-23-22 13:25:50 CDT by Renzo Drummond
== END 2022-06-22 18:19 | disposition home or self-care (01) ==
LOC: ER 14:04
DX: R07.89 Other chest pain (principal); I10 Essential (primary) hypertension; Z72.0 Tobacco use
CPT/HCPCS: 36415; 71045; 80048; 80076; 83735; 83880; 84484; 85025; 93005; 99284

== ENCOUNTER 2022-07-24 02:36 | Emergency (ER) | payer OTHER ==
--- OUTSIDE RECORDS SUMMARY | 2022-07-24 02:39 | XMS REPORT | Continuity of Care Document ---
:1980 Author Organization [facility] t Address [address] [place] [address] Care Team Providers Name Role Phone Neda Mazariegos Attending Clinician Unavailable Problems Condition Condition Condition Status Onset Resolution Last Treating Co mments Source Name Details Category Date Date Treatment Clinician Date Morbid Morbid Problem Active Common obesity (severe) Spirit obesity - [facility] due to [facility] Benign Benign Problem Active Common essential essential Spir it hypertensi hypertensi - [facility] on on [facility] Chronic Chronic Problem Active Common low back low back Spirit pain pain - [facility] Family Family Problem Active Common history of history of Sp duncan diabetes diabetes - [facility] mellitus mellitus [facility] Tobacco Nicotine Problem Active Common user dependence Spirit , - [facility] uncomplica [facility] unspecifie Medica [facility] nicotine Center product type Body mass Adult BMI Problem Active Com mon index 40+ 40.0-44.9 Spir it - severely kg/sq m - [facility] obese [facility] Allergies, Adverse Reactions, Alerts This patient has no known allergies or adverse reactions. Social History Social Habit Start Date Stop Date Quantity Comments Source History of Tobacco Current Smoker Co mmon Spirit - [facility] Use [facility] Sex Assigned At Com mon Spirit - [facility] Smoking Status Start Date Stop Date Source Current Smoker 2019-11-24 00:00:00 Common Spiri t - [facility] Medications Ordered Filled Start Stop Current Ordering Indication Dosage Frequency Signature Comments Components Source Medication Medication Date Date Medication? Clinician (SIG) Name Name Losartan Losartan 2019-02 No 1{table QD Losartan Potassium Potassium 0-19 t} Potassium 25 MG 25 MG 00:00: 25 MG 00 Vital Signs Vital Name Observation Time Observation Value Comments Source height 2019-11-24 13:20:00 68 [in_i] [facility] weight 2019-11-24 13:20:00 281.0 [lb_av] [facility] temperature 2019-11-24 13:20:00 97.5 [degF] [facility] bmi 2019-11-24 13:20:00 42.72 kg/m2 [facility] oximetry 2019-11-24 13:20:00 92 % [facility] respiratory rate 2019-11-24 13:20:00 17 /min Comm on [facility] blood pressure 2019-11-24 13:20:00 143 mm[Hg] [facility] - systolic [facility] blood pressure 2019-11-24 13:20:00 99 mm[Hg] [facility] diastolic [facility] Procedures This patient has no known procedures. Encounters Start End Encounter Admission Attending Care Care Encounter Source Date/Time Date/Time Type Type Clinicians Facility Department ID 2021-03-02 Outpatient Yair, STLMLC STLMLC [id number] Common 12:00:50 Neda [id number] [facility] 2021-03-02 Outpatient STLMLC STLMLC [id number] Common 11:56:30 [id number] [facility] 2022-05-26 2022-05-26 Outpatient SFA SFA [id number] [place] 16:50:47 16:50:47 [id number] F Conrad 2022-04-04 2022-04-04 Outpatient SFA SFA [id number] [place] 11:07:16 11:07:16 [id number] F Conrad 2022-03-20 2022-03-20 Outpatient SFA SFA [id number] [place] 14:58:22 14:58:22 [id number] [facility] [place] 2019-11-24 2019-11-24 OFFICE STLMLC STLMLC [id number] Co mmon 00:00:00 00:00:00 VISIT ALEX [facility] PT LEVEL 3 - [facility] Results This patient has no known results.
[2022-07-24] MEDS ORDERED: ASPIRIN 81 MG CHEWABLE TABLET ONE (03:19)
[2022-07-24] MEDS ORDERED: cloNIDine HCL 0.1 MG TAB ONE (03:19)
[2022-07-24 03:37] LABS: Absolute Lymphocytes (CBC) 1.9 K/uL (0.7-4.9); Hematocrit 40.8 % (39.6-49.0); MCV 95.1 fL (80-100); MPV 8.9 fL (7.6-11.3); RBC Red Blood Cell Count 4.29 M/uL (4.33-5.43)
[2022-07-24 03:43] LABS: Protime INR 1.23
[2022-07-24 04:00] LABS: Albumin 3.4 g/dL (3.4-5.0); Bilirubin Direct 0.1 mg/dL (0-0.2); Bilirubin Indirect, Calculated 0.4 mg/dL (0.2-0.8); Bilirubin Total 0.5 mg/dL (0.2-1.0); Potassium 3.4 mEq/L (3.5-5.1); Protein, Total 7.4 g/dL (6.4-8.2)
--- NOTE | 2022-07-24 07:04 | ER ---
Nurse's Notes [facility] Name: Grzegorz Ashraf Jr Age: 41 yrs Sex: Male : 1980 Arrival Date: 07/24/2022 Time: 02:36 Bed 17 Private MD: Diagnosis: Chest pain, unspecified Presentation: 07/24 02:57 Chief complaint: Patient states: I AM HAVING LEFT SIDED CHEST PAIN THAT GOES DOWN MY kd3 LEFT ARM THAT STARTED AN HOUR AGO. I DON'T HAVE ANY SHORTNESS OF BREATH OR DIZZINESS. Coronavirus screen: Vaccine status:. Ebola Screen: No symptoms or risks identified at this time. Initial Sepsis Screen: Does the patient meet any 2 criteria? No. Patient's initial sepsis screen is negative. Does the patient have a suspected source of infection? No. Patient's initial sepsis screen is negative. Risk Assessment: Do you want to hurt yourself or someone else? Patient reports no desire to harm self or others. Onset of symptoms was July 24, 2022. 02:57 Method Of Arrival: Ambulatory kd3 02:57 Acuity: SAI 3 kd3 Triage Assessment: 02:57 General: Appears in no apparent distress. Behavior is calm, cooperative. Pain: kd3 Complains of pain in anterior aspect of left upper chest Pain radiates to left arm. Cardiovascular: Patient's skin is warm and dry. Historical: - PMHx: 02:56 Hypertensive disorder; sp4 - Immunization history:: Adult Immunizations up to date. - Social history:: Smoking status: Patient reports the use of cigarette tobacco products, cigars. - Family history:: not pertinent. Screenin:54 [facility] ED Fall Risk Assessment (Adult) History of falling in the last 3 months, vc1 including since admission No falls in past 3 months (0 pts) Confusion or Disorientation No (0 pts) Intoxicated or Sedated No (0 pts) Impaired Gait No (0 pts) Mobility Assist Device Used No (0 pt) Altered Elimination No (0 pt) Score/Fall Risk Level 0 - 2 = Low Risk Oriented to surroundings, Maintained a safe environment, Educated pt \T\ family on fall prevention, incl call for assistance when getting out of bed. Abuse screen: Denies threats or abuse. Nutritional screening: No deficits noted. Tuberculosis screening: No symptoms or risk factors identified. Assessment: 03:00 Pain: Pain began suddenly. vc1 03:54 Reassessment: Patient and/or family updated on plan of care and expected duration. Pain vc1 level reassessed. Patient is alert, oriented x 3, equal unlabored respirations, skin warm/dry/pink. Patient states feeling better. Patient states symptoms have improved. Pain:. 04:59 Reassessment: No changes from previously documented assessment. Patient and/or family vc1 updated on plan of care and expected duration. Pain level reassessed. Patient is alert, oriented x 3, equal unlabored respirations, skin warm/dry/pink. Patient denies pain at this time. Patient states feeling better. Patient states symptoms have improved. 05:58 Reassessment: No changes from previously documented assessment. Patient and/or family vc1 updated on plan of care and expected duration. Pain level reassessed. Patient is alert, oriented x 3, equal unlabored respirations, skin warm/dry/pink. 06:52 Reassessment: No changes from previously documented assessment. Patient and/or family vc1 updated on plan of care and expected duration. Pain level reassessed. Patient is alert, oriented x 3, equal unlabored respirations, skin warm/dry/pink. 07:26 Reassessment: PT DC HOME AMBULATORY. bp Vital Signs: 02:57 BP 136 / 95; Pulse 103; Resp 15; Temp 98(O); Pulse Ox 94% on R/A; Weight 120.2 kg; kd3 Height 5 ft. 8 in. ; 03:55 BP 110 / 65; Pulse 102; Resp 16; Pulse Ox 99% ; vc1 04:59 BP 113 / 88; Pulse 99; Resp 15; Pulse Ox 98% ; vc1 05:58 BP 110 / 56; Pulse 88; Resp 18; Pulse Ox 99% ; vc1 06:53 BP 109 / 77; Pulse 81; Resp 17; Pulse Ox 97% ; vc1 02:57 Body Mass Index 40.29 (120.20 kg, 172.72 cm) kd3 ED Course: 02:39 Patient arrived in ED. ja2 02:46 Radhames Mckenzie MD is Attending Physician. sp4 02:55 Andria Willis, URIEL is Primary Nurse. vc1 02:57 Arm band placed on right wrist. kd3 03:00 Patient has correct armband on for positive identification. Placed in gown. Bed in low vc1 position. Call light in reach. Client placed on continuous cardiac and pulse oximetry monitoring. NIBP monitoring applied. 03:01 Triage completed. kd3 03:07 XRAY Chest (1 view) In Process Unspecified. EDMS 03:56 Patient maintains SpO2 saturation greater than 95% on room air. vc1 06:36 Troponin High Sensitivity Sent. vc1 07:03 Renzo Drummond MD is Referral Physician. sp4 07:07 Primary Nurse role handed off by Andria Willis, URIEL bp 07:07 Kd Tenorio, RN is Primary Nurse. bp 07:26 No provider procedures requiring assistance completed. IV discontinued, intact, bp bleeding controlled, No redness/swelling at site. Pressure dressing applied. Administered Medications: 03:14 Drug: Aspirin PO Chewable Tablet 324 mg Route: PO; vc1 05:01 Follow up: Response: No adverse reaction; Marked relief of symptoms vc1 03:14 Drug: cloNIDine PO 0.2 mg Route: PO; vc1 05:01 Follow up: Response: No adverse reaction; Marked relief of symptoms vc1 Medication: 03:56 VIS not applicable for this client. vc1 Outcome: 07:03 Discharge ordered by . sp4 07:26 Discharged to home ambulatory. bp 07:26 Condition: stable 07:26 Discharge instructions given to patient, Instructed on discharge instructions, follow up and referral plans. Demonstrated understanding of instructions, follow-up care. 07:27 Patient left the ED. bp Signatures: Dispatcher [employer] EDKS Kd Tenorio RN RN bp Roxanna Chávez Kyli, RN RN kd3 Andria Willis RN RN vc1 Radhames Mckenzie MD MD sp4
--- NOTE | 2022-07-24 07:04 | EDPHYS ---
Physician Documentation [facility] Name: Grzegorz Ashraf Jr Age: 41 yrs Sex: Male : 1980 Arrival Date: 07/24/2022 Time: 02:36 Bed 17 Private MD: ED Physician Radhames Mckenzie HPI: 07/24 02:46 This 41 yrs old Black Male presents to ER via Unassigned with complaints of Arm Pain, sp4 Chest Pain. 02:55 41-year-old male with a past medical history hypertension on antihypertensives at home sp4 presents with acute onset of chest pressure left-sided associated with the pain in the left arm. Denied any dyspnea. Historical: - PMHx: 02:56 Hypertensive disorder; sp4 - Immunization history:: Adult Immunizations up to date. - Social history:: Smoking status: Patient reports the use of cigarette tobacco products, cigars. - Family history:: not pertinent. ROS: 02:56 Constitutional: Negative for fever, chills, and weight loss, Eyes: Negative for injury, sp4 pain, redness, and discharge, ENT: Negative for injury, pain, and discharge, Neck: Negative for injury, pain, and swelling, Cardiovascular: Negative for palpitations, and edema, positive for chest pain associated with the left arm pain. Respiratory: Negative for shortness of breath, cough, wheezing, and pleuritic chest pain, Abdomen/GI: Negative for abdominal pain, nausea, vomiting, diarrhea, and constipation, Back: Negative for injury and pain, : Negative for injury, bleeding, discharge, and swelling, MS/Extremity: Negative for injury and deformity, Skin: Negative for injury, rash, and discoloration, Neuro: Negative for headache, weakness, numbness, tingling, and seizure, Psych: Negative for depression, anxiety, Allergy/Immunology: Negative for hives, rash, and allergies Endocrine: Negative for neck swelling, polydipsia, polyuria, polyphagia, and weight changes Hematologic/Lymphatic: Negative for swollen nodes, abnormal bleeding, and unusual bruising Exam: 02:56 Constitutional: This is a well developed, well nourished patient who is awake, alert, sp4 and in no acute distress. Head/Face: Normocephalic, atraumatic. Eyes: Pupils equal round and reactive to light, extra-ocular motions intact. Lids and lashes normal. Conjunctiva and sclera are not injected. Cornea within normal limits. Periorbital areas with no swelling, redness, or edema. ENT: Nares patent. No nasal discharge, no septal abnormalities noted. Tympanic membranes are normal and external auditory canals are clear. Oropharynx with no redness, swelling, or masses, exudates, or evidence of obstruction, uvula midline. Mucous membranes moist. Neck: Trachea midline, no thyromegaly or masses palpated, and no cervical lymphadenopathy. Supple, full range of motion without nuchal rigidity, or vertebral point tenderness. Chest/axilla: Normal chest wall appearance and motion. Nontender with no deformity. No lesions are appreciated. Cardiovascular: Regular rate and rhythm with a normal S1 and S2. No gallops, murmurs, or rubs. Normal PMI, no JVD. No pulse deficits. Respiratory: Lungs have equal breath sounds bilaterally, clear to auscultation and percussion. No rales, rhonchi or wheezes noted. No increased work of breathing, no retractions or nasal flaring. Abdomen/GI: Soft, non-tender, with normal bowel sounds. No distension or tympany. No guarding or rebound. No evidence of tenderness throughout. Back: No spinal tenderness. No costovertebral tenderness. Skin: Warm, dry with normal turgor. Normal color with no rashes, no lesions, and no evidence of cellulitis. MS/ Extremity: Pulses equal, no cyanosis. Neurovascular intact. Full, normal range of motion. Neuro: Awake and alert, GCS 15, oriented to person, place, time, and situation. Cranial nerves II-XII grossly intact. Motor strength 5/5 in all extremities. Sensory grossly intact. Psych: Awake, alert, with orientation to person, place and time. Behavior, mood, and affect are within normal limits 02:56 ECG was reviewed by the Attending Physician. EKG time 0 250, EKG reveals sinus sp4 tachycardia at the rate of 106, no ST elevation or depression, no ectopy. Vital Signs: 02:57 BP 136 / 95; Pulse 103; Resp 15; Temp 98(O); Pulse Ox 94% on R/A; Weight 120.2 kg; kd3 Height 5 ft. 8 in. ; 03:55 BP 110 / 65; Pulse 102; Resp 16; Pulse Ox 99% ; vc1 04:59 BP 113 / 88; Pulse 99; Resp 15; Pulse Ox 98% ; vc1 05:58 BP 110 / 56; Pulse 88; Resp 18; Pulse Ox 99% ; vc1 06:53 BP 109 / 77; Pulse 81; Resp 17; Pulse Ox 97% ; vc1 02:57 Body Mass Index 40.29 (120.20 kg, 172.72 cm) kd3 MDM: 02:49 Patient medically screened. 4 07:01 Differential diagnosis: Cardiac chest pain, ACS, noncardiac chest pain. Data reviewed: sp4 vital signs, nurses notes, old medical records, lab test result(s), cardiac enzymes, CBC, electrolytes, hepatic panel, EKG, radiologic studies, plain films. Consideration of Admission/Observation Patient was admitted/placed on observation. Escalation of care including admission/observation considered. ED course: Patient initial and repeat troponin negative, overall patient has negative work-up in ER was advised to visit with pocket assembler for in office stress test we will refer her to Dr. Drummond . 07/24 02:48 Order name: Basic Metabolic Panel; Complete Time: 05:46 [facility] 07/24 02:48 Order name: CBC with Diff; Complete Time: 05:46 4 07/24 02:48 Order name: LFT's; Complete Time: 05:46 4 07/24 02:48 Order name: NT PRO-BNP; Complete Time: 05:46 4 07/24 02:48 Order name: PT-INR; Complete Time: 05:46 4 07/24 02:48 Order name: Troponin HS; Complete Time: 05:46 [facility] 07/24 06:30 Order name: Troponin High Sensitivity; Complete Time: 06:59 vc1 07/24 02:48 Order name: XRAY Chest (1 view) [facility] 07/24 02:48 Order name: EKG; Complete Time: 02:49 4 07/24 02:48 Order name: Cardiac monitoring; Complete Time: 03:03 [facility] 07/24 02:48 Order name: EKG - Nurse/Tech; Complete Time: 03:03 4 07/24 02:48 Order name: IV Saline Lock; Complete Time: 03:04 4 07/24 02:48 Order name: Labs collected and sent; Complete Time: 03:03 [facility] 07/24 02:48 Order name: O2 Per Protocol; Complete Time: 03:04 sp4 07/24 02:48 Order name: O2 Sat Monitoring; Complete Time: 03: sp4 EC:56 Rate is 106 beats/min. Rhythm is regular, Sinus tachycardia. QRS [place] is Normal. [place] sp4 interval is normal. QRS interval is normal. QT interval is normal. T waves are Normal. No ST changes noted. Clinical impression: No evidence of ischemia. Interpreted by me. Administered Medications: 03:14 Drug: Aspirin PO Chewable Tablet 324 mg Route: PO; vc1 05:01 Follow up: Response: No adverse reaction; Marked relief of symptoms vc1 03:14 Drug: cloNIDine PO 0.2 mg Route: PO; vc1 05:01 Follow up: Response: No adverse reaction; Marked relief of symptoms vc1 Disposition Summary: 07/24/22 07:03 Discharge Ordered Location: Home sp4 Problem: new sp4 Symptoms: have improved sp4 Condition: Stable sp4 Diagnosis - Chest pain, unspecified sp4 Followup: sp4 - With: Renzo Drummond MD - When: 7 - 10 days - Reason: Recheck today's complaints Discharge Instructions: - Discharge Summary Sheet sp4 - Nonspecific Chest Pain, Adult, [id number] sp4 Signatures: Dispatcher [employer] Christi Kraus RN RN kd3 Andria Willis RN RN vc1 Radhames Mckenzie MD MD sp4
[2022-07-24 07:36] VITALS: TEMP 98
[2022-07-24 07:39] VITALS: BP 109/77; O2SAT 97
--- NOTE | 2022-07-24 11:19 | RAD REPORT ---
EXAM DESCRIPTION: RAD - Chest Single View - 07/24/2022 3:05 am CLINICAL HISTORY: The patient is 41 years old and is Male; CHEST PAIN TECHNIQUE: Frontal view of the chest. COMPARISON: XR Chest dated Jun 22 2022 FINDINGS: LUNGS: Unremarkable. No consolidation. PLEURAL SPACE: Unremarkable. No pneumothorax. HEART: Unremarkable. No cardiomegaly. MEDIASTINUM: Unremarkable. BONES/JOINTS: Unremarkable. UPPER ABDOMEN: Unremarkable as visualized. IMPRESSION: No acute cardiopulmonary process. Electronically signed by: Holly Jason MD 07/24/2022 3:39 AM CDT Due to temporary technical issues with the PACS/Fluency reporting system, reports are being signed by the in house radiologist without review as a courtesy to ensure prompt reporting. The interpreting r adiologist is fully responsible for the content of the report.
--- NOTE | 2022-07-24 17:49 | EKG ---
Test Date: 2022-07-24 Test Time: 02:50:23 Systems Analyst: NICOLAS MEASUREMENT RESULTS: Intervals: Rate: 106 AR: 148 QRSD: 88 QT: 360 QTc: 478 [place]: P: 46 AR: 148 QRS: 45 T: 47 INTERPRETIVE STATEMENTS: Sinus tachycardia Otherwise normal ECG Compared to ECG 06/22/2022 14:34:55 No significant changes Electronically Signed On 07-24-22 17:48:44 CDT by Renzo Drummond
== END 2022-07-24 07:27 | disposition home or self-care (01) ==
LOC: ER 02:36
DX: R07.89 Other chest pain (principal); I10 Essential (primary) hypertension; F17.290 Nicotine dependence, other tobacco product, uncomplicated
CPT/HCPCS: 36415; 71045; 80048; 80076; 83880; 84484; 85025; 85610; 93005; 99284